=== PATIENT | male | born 1985 | race Caucasian/White ===

== ENCOUNTER 2021-07-21 10:02 | Day surgery (SDC) | payer MEDICAID ==
[~2021-07-21] VITALS: Ht 172.7 cm; Wt 85.3 kg
[~2021-07-21 10:02] MED LIST: BUPIVAcaine/PF 2.5 mg/ml (0.25%) 30ml vial ONE; NO HOME MEDS; ceFAZolin 2gm in dextrose, iso 50 ML IV ONE; famotidine 20mg tablet PO ONE; ringers solution, lacted 1,000 ML IV SCH
[2021-07-21] MEDS ORDERED: BUPIVAcaine/PF 2.5mg/ml (0.25%) 10ml vial ONE (11:38)
[2021-07-21] MEDS ORDERED: LIDOcaine 1% 30ml preserv. free vial ONE (11:41)
[2021-07-21 11:52] LABS: ISTAT ANION GAP 8 (8-12); ISTAT BUN 13 mg/dL (7-18); ISTAT CL 101 mmol/L (99-107); ISTAT CREATININE 0.9 mg/dL (0.8-1.3); ISTAT GLUCOSE 98 mg/dL (70-105); ISTAT HGB 15.6 g/dl (14.0-18.0); ISTAT Hct 46 %PCV (42-52); ISTAT IONIZED CALCIUM 1.25 mmol/L (1.03-1.32); ISTAT K 4.7 mmol/L (3.5-5.1); ISTAT NA 140 mmol/L (135-145); ISTAT TOTAL CO2 31 mmol/L (24-32); ISTAT eGFR > 90 ML/MIN; POC BUN/CREATININE RATIO 14.4 (5.4-32.0)
[2021-07-21] MEDS ORDERED: cloNIDine hcl/PF 100mcg/ml inj ONE (12:09)
[2021-07-21 12:18] VITALS: BP 142/89
[2021-07-21 12:27] VITALS: BP 142/89
[2021-07-21] MEDS ORDERED: propofol inj 20 ML IV ONE (12:30)
[2021-07-21] MEDS ORDERED: fentaNYL/PF 50MCG/1 ML 2ML syringe ONE (12:30)
[2021-07-21] MEDS ORDERED: midazolam 1 mg/ML 2ml injection ONE (12:30)
[2021-07-21] MEDS ORDERED: ROPIVAcaine 0.5% (5mg/ml) 30ml vial ONE (12:31)
[2021-07-21] MEDS ORDERED: meperidine/PF 25mg/ml syringe IV PRN ×3 (12:40)
[2021-07-21] MEDS ORDERED: proCHLORperazine 10 MG/2 ml inj IV PRN (12:40)
[2021-07-21] MEDS ORDERED: ondansetron/PF 4mg/2ml inj IV PRN (12:40)
[2021-07-21] MEDS ORDERED: ringers solution, lacted 1,000 ML IV SCH (12:40)
[2021-07-21] MEDS ORDERED: morphine 2 MG/ML inj. syringe IV PRN (12:40)
[2021-07-21] MEDS ORDERED: morphine 4 MG/ML inj SYRINge IV PRN (12:40)
[2021-07-21 14:10] VITALS: BP 160/100
--- NOTE | 2021-07-21 14:10 | NUR ---
0Received from OR via [facility] , accompanied by Anesthesiologist SHANNEN and report given by Anesthesiolgist. PATIENT WITH THUMB POINTER AND MIDDLE FINGER EXPOSED WITH + CAP REFILL AND CSM. VSS. DENIES PAIN AT THIS TIME. SPLINT TO RIGHT UE IS CDI. 10L MASK ON WITH 100% SATURATIONS ON RA. Addendum: 07/21/21 at 1420 by Zacarias Senior RN, RN Amended: Links added.
[2021-07-21 14:20] VITALS: BP 169/108
[2021-07-21 14:30] VITALS: BP 103/78
--- NOTE | 2021-07-21 14:40 | NUR ---
ALL DISCHARGE CRITERIA HAS BEEN MET. VSS, PAIN AT A TOLERABLE LEVEL, VOIDING AND ABLE TO SAFELY AMBULATE AND TRANSFER SELF. IV TAKEN OUT WITHOUT ANY COMPLICATIONS. ALL DISCHARGE INSTRUCTIONS COVERED WITH PATIENT AND ALL QUESTIONS ANSWERED. PATIENT TAKEN OUT VIA WHEELCHAIR TO PERSONAL VEHICLE WHERE FAMILY/FRIEND DROVE PATIENT HOME. Addendum: 07/21/21 at 1555 by Zacarias Senior RN, RN Amended: Links added.
== END 2021-07-21 14:40 | disposition home or self-care (01) ==
LOC: PAS 10:02
PROVIDERS: ATTEND Orthopaedic Surgery Hand Surgery
DX: S66.312A Strain of extensor muscle, fascia and tendon of right middle finger at wrist and hand level, initial encounter (principal); S66.314A Strain of extensor muscle, fascia and tendon of right ring finger at wrist and hand level, initial encounter; S66.316A Strain of extensor muscle, fascia and tendon of right little finger at wrist and hand level, initial encounter; G89.18 Other acute postprocedural pain; Z87.891 Personal history of nicotine dependence; Z98.890 Other specified postprocedural states; Z20.822 Contact with and (suspected) exposure to COVID-19; W26.8XXA Contact with other sharp object(s), not elsewhere classified, initial encounter; Y93.89 Activity, other specified; Y92.89 Other specified places as the place of occurrence of the external cause; Y99.8 Other external cause status
CPT/HCPCS: 26418; 64415; 76942; 80047; 87635; A6222; C9803; J0735; J2001; J2250; J2704; J3010; J3490; Z7506; Z7508; Z7512; 80053; A4215; A4618; A7000; J2795; J7120